=== PATIENT | male | born 1945 | race Caucasian/White ===

== ENCOUNTER 2016-10-23 13:03 | Inpatient (IN) | payer OTHER ==
[2016-10-23 13:07] VITALS: BMI 22.8
[2016-10-23] MEDS ORDERED: morphine CARPU-JECT 4 MG/1 ML DISP.SYRIN IVPUSH ONE (13:37)
[2016-10-23] MEDS ORDERED: SODIUM CHLORIDE 1,000 ML IV STA (13:37)
--- NOTE | 2016-10-23 13:38 | PDOC ---
History of Present Illness - General History Source: Patient Exam Limitations: No Limitations - History of Present Illness Initial Comments: 10/23/16 13:47 The patient is a 71 year old male with past medical history of hypertension, hyperlipidemia, lung CA ( s/p right pneumonectomy 5 years ago, in remission) who presents to the ED with chest pain that began this morning. The patient states that he woke up with a sharp, mid-sternal chest pain rated 9/10 in severity. It is constant and non-radiating in nature. It is not associated with shortness of breath and the patient denies experiencing similar symptoms in the past. The patient states he took two baby aspirin this morning. The patient also adds that he has been feeling very weak the past couple of days and slept in later than usual today. The patient denies any recent illness, fever, chills , nausea, vomiting, diarrhea. He denies any cough or urinary symptoms. The patient denies any recent travel, prolonged sitting, or hormone therapy. <Devi Campos - Last Filed: 10/23/16 16:09> - General History Source: Patient Exam Limitations: No Limitations <Dharmesh Frias - Last Filed: 10/23/16 16:45> - General Chief Complaint: Chest Pain Stated Complaint: CHEST PAIN Time Seen by Provider: 10/23/16 13:32 Past History <Devi Campos - Last Filed: 10/23/16 16:09> - Past Medical History Cancer: Yes (LUNG) Cardiac Disorders: Yes HTN: Yes Hypercholesterolemia: Yes - Psycho/Social/Smoking Cessation Hx Suicidal Ideation: No Smoking History: Never smoked Information on smoking cessation initiated: No <Dharmesh Frias - Last Filed: 10/23/16 16:45> - Past Medical History Allergies/Adverse Reactions: Allergies Allergy/AdvReac Type Severity Reaction Status Date / Time No Known Allergies Allergy Verified 10/23/16 13:07 Home Medications: Ambulatory Orders Aspirin [ASA -] 81 mg PO DAILY 10/23/16 Metoprolol Succinate [Toprol Xl] 50 mg PO DAILY 10/23/16 Omeprazole 40 mg PO DAILY 10/23/16 Polyethylene Glycol 3350 [Glycolax] 17 gm PO DAILY 10/23/16 Rosuvastatin [Crestor -] 10 mg PO DAILY 10/23/16 Review of Systems - Review of Systems Able to Perform ROS?: Yes Comments:: 10/23/16 13:47 GENERAL/CONSTITUTIONAL: Present: weakness No fever or chills. HEAD, EYES, EARS, NOSE AND THROAT: No change in vision. No ear pain or discharge. No sore throat. CARDIOVASCULAR: Present: chest pain No shortness of breath. RESPIRATORY: No cough, wheezing, or hemoptysis. GASTROINTESTINAL: No nausea, vomiting, diarrhea or constipation. GENITOURINARY: No dysuria, frequency, or change in urination. MUSCULOSKELETAL: No joint or muscle swelling or pain. No neck or back pain. SKIN: No rash NEUROLOGIC: No headache, vertigo, loss of consciousness, or change in strength/ sensation. ENDOCRINE: No increased thirst. No abnormal weight change. HEMATOLOGIC/LYMPHATIC: No anemia, easy bleeding, or history of blood clots. ALLERGIC/IMMUNOLOGIC: No hives or skin allergy. All Other Systems: Reviewed and Negative <Devi Campos - Last Filed: 10/23/16 16:09> *Physical Exam - Vital Signs Last Vital Signs Temp Pulse Resp BP Pulse Ox 98 F 88 20 136/89 100 10/23/16 13:04 10/23/16 13:04 10/23/16 13:04 10/23/16 13:04 10/23/16 13:04 - Physical Exam Comments: 10/23/16 13:49 GENERAL: Uncomfortable appearing, Awake, alert, and fully oriented HEAD: No signs of trauma EYES: PERRLA, EOMI, sclera anicteric, conjunctiva clear ENT: Auricles normal inspection, hearing grossly normal, nares patent, oropharynx clear without exudates. Moist mucosa NECK: Normal ROM, supple, no lymphadenopathy, JVD, or masses LUNGS: Breath sounds equal, clear to auscultation bilaterally. No wheezes, and no crackles HEART: irregularly irregular, normal S1 and S2, no murmurs, rubs or gallops ABDOMEN: Soft, nontender, normoactive bowel sounds. No guarding, no rebound. No masses EXTREMITIES: Normal range of motion, no edema. No clubbing or cyanosis. No cords, erythema, or tenderness NEUROLOGICAL: Cranial nerves II through XII grossly intact. Normal speech, normal gait SKIN: Warm, Dry, normal turgor, no rashes or lesions noted. <Devi Campos - Last Filed: 10/23/16 16:09> - Vital Signs Last Vital Signs Temp Pulse Resp BP Pulse Ox 98 F 88 20 136/89 100 10/23/16 13:04 10/23/16 13:04 10/23/16 13:04 10/23/16 13:04 10/23/16 13:04 <Dharmesh Frias - Last Filed: 10/23/16 16:45> Heart Score/ECG Review - History History: Moderately suspicious - Electrocardiogram EKG: Non specific repolarization disturbance - Age Age: >/= 65 - Risk Factors Risk Factors Heart Score: Yes Hx Hypercholesterolemia, Yes Hx Hypertension Based on the list above the patient has:: 1-2 risk factors - Troponin Troponin: >/=3x normal limit - Score Heart Score - Total: 7 #1 ECG reviewed & interpreted by me at: 13:15 10/23/16 15:18 atrial fibrillation 86, left axis deviation, no st/jillian, QTC 440 msec <Dharmesh Frias - Last Filed: 10/23/16 16:45> ED Treatment Course - LABORATORY CBC & Chemistry Diagram: 10/23/16 13:45 10/23/16 13:45 - RADIOLOGY Radiograph Interpretation: 10/23/16 15:53 Chest CTA as reviewed by Dr. Dos Santos reports no evidence of pulmonary embolism. 10/23/16 16:09 Chest x-ray as reviewed by Dr. Dos Santos reports pneumonectomy with mediastinal shift to the right <Devi Campos - Last Filed: 10/23/16 16:09> - LABORATORY CBC & Chemistry Diagram: 10/23/16 13:45 10/23/16 13:45 - RADIOLOGY Radiology Studies Ordered: Category Date Time Status CHEST CTA [CT] Stat CT Scan 10/23/16 13:37 Ordered CHEST X-RAY PORTABLE* [RAD] Stat Radiology 10/23/16 13:37 Ordered <Dharmesh Frias - Last Filed: 10/23/16 16:45> Medical Decision Making - Medical Decision Making 10/23/16 15:54 Microblog sent to Hospitalist. Awaiting call back <Devi Campos - Last Filed: 10/23/16 16:09> - Critical Care Time Total Critical Care Time (minutes): 35 Critical Care Statement: The care of this patient involved high complexity decision making to prevent further life threatening deterioration of the patient 's condition and/or to evalute & treat vital organ system(s) failure or risk of failure. - Medical Decision Making 10/23/16 15:18 A portion of this note was documented by scribe services under my direction. I have reviewed the details of the note, within reason, and agree with the documentation with the following case summary and management plan written by me. Patient treated in the ED. Nursing notes are reviewed and incorporated into the medical decision-making. Vital signs reviewed. Peripheral IV access obtained by the nurse, laboratory studies are drawn and sent, reviewed and interpreted by myself. Vital Signs Temp Pulse Resp BP Pulse Ox 98 F 88 20 136/89 98 10/23/16 13:04 10/23/16 13:04 10/23/16 13:04 10/23/16 13:04 10/23/16 14:05 71 year old male with past medical history of hypertension, hyperlipidemia, lung cancer status post right-sided partial lung resection many years ago in remission presents to the ED with midsternal sharp chest pain with no radiation. Patient denies shortness of breath or nausea or vomiting or diaphoresis and had taken 2 baby aspirins states that he's been feeling persistent chest pain. First-time episode. Denies recent travels, DVTs, PEs. Patient's EKG demonstrates likely new onset of atrial fibrillation. However, no ST elevations or depressions are noted. Troponin is elevated 1.27 concerning for an STEMI. However, given history of lung cancer and sharp chest pain, and persistent chest pain despite morphine, we'll obtain a CT angiogram to rule out pulmonary embolus. Case was discussed with Dr. Mario who agrees to be consulted and requested IV heparin for the patient. Will ultimately admit the patient once the CT scan results are back. 10/23/16 16:39 CBC, BMP 10/23/16 13:45 10/23/16 13:45 CMP Sodium 140 mmol/L (136-145) 10/23/16 13:45 Potassium 3.6 mmol/L (3.5-5.1) 10/23/16 13:45 Chloride 102 mmol/L (98-107) 10/23/16 13:45 Carbon Dioxide 30 mmol/L (21-32) 10/23/16 13:45 Anion Gap 8 (8-16) 10/23/16 13:45 BUN 21 mg/dL (7-18) H 10/23/16 13:45 Creatinine 1.4 mg/dL (0.7-1.3) H 10/23/16 13:45 Creat Clearance w eGFR 49.96 (>60) 10/23/16 13:45 Random Glucose 122 mg/dL (74-106) H 10/23/16 13:45 Calcium 9.5 mg/dL (8.5-10.1) 10/23/16 13:45 Total Bilirubin 0.6 mg/dL (0.2-1.0) 10/23/16 13:45 AST 28 U/L (15-37) 10/23/16 13:45 ALT 24 U/L (12-78) 10/23/16 13:45 Alkaline Phosphatase 91 U/L (45-117) 10/23/16 13:45 Creatine Kinase 354 IU/L (39-308) H 10/23/16 13:45 CK-MB (CK-2) 13.326 ng/ml (0.5-3.6) H 10/23/16 13:45 CK-MB (CK-2) Rel Index Cancelled 10/23/16 13:45 Troponin I 1.27 ng/ml (0.00-0.05) H* 10/23/16 13:45 Total Protein 7.7 g/dl (6.4-8.2) 10/23/16 13:45 Albumin 4.0 g/dl (3.4-5.0) 10/23/16 13:45 TSH 0.88 uIU/ml (0.358-3.74) 10/23/16 13:45 Urine Test Results Urine Color Ltyellow 10/23/16 13:45 Urine Appearance Clear 10/23/16 13:45 Urine pH 5.0 (5.0-8.0) 10/23/16 13:45 Urine Protein Negative (NEGATIVE) 10/23/16 13:45 Urine Glucose (UA) Negative (NEGATIVE) 10/23/16 13:45 Urine Ketones Negative (NEGATIVE) 10/23/16 13:45 Urine Blood 2+ (NEGATIVE) H 10/23/16 13:45 Urine Nitrite Negative (NEGATIVE) 10/23/16 13:45 Urine Bilirubin Negative (NEGATIVE) 10/23/16 13:45 Ur Leukocyte Esterase Negative (NEGATIVE) 10/23/16 13:45 Urine RBC 5 /hpf (0-3) 10/23/16 13:45 Urine WBC 1 /hpf (3-5) 10/23/16 13:45 Ur Epithelial Cells Rare /hpf (FEW) 10/23/16 13:45 CAT scan the chest shows no pulmonary embolism. Patient's troponin is elevated 1.27 suggestive of an STEMI. IV heparin was ordered and given. Patient has been given aspirin. Case was discussed with patient's nephew, Dr. Hurley, who is an post secondary professional with [facility]. Agrees with plan for aspirin, IV heparin. Requests to be kept updated on plans. Dr. Mario aware and had spoken to Dr. Hurley. Case is discussed with Dr. Mario who will follow patient. He is here present in the ED. Case discussed with nicole. Case accepted to telemetry admission. Case discussed in detail with admitting physician including history, physical exam and ancillary studies. Admitting physician has assumed care for the patient, will follow all pending diagnostics and will complete the evaluation and treatment. <Dharmesh Frias - Last Filed: 10/23/16 16:45> *DC/Admit/Observation/Transfer - Attestations Scribe Attestion: 10/23/16 13:51 Documentation prepared by Devi Campos, acting as medical reception for Dharmesh Frias MD. <Devi Campos - Last Filed: 10/23/16 16:09> - Discharge Dispostion Admit: Yes <Dharmesh Frias - Last Filed: 10/23/16 16:45> Diagnosis at time of Disposition: NSTEMI (non-ST elevated myocardial infarction) - Discharge Dispostion Condition at time of disposition: Stable
[2016-10-23] MEDS ORDERED: morphine CARPU-JECT 4 MG/1 ML DISP.SYRIN ONE ×2 (13:46→14:37)
[2016-10-23 13:53] LABS: BASOPHIL 0.3 % (0-2.0); MCH 29.4 pg (25.7-33.7); MEAN CELL VOLUME 86.4 fl (80-96); MEAN PLT VOLUME 8.3 fl (7.5-11.1); NEUTROPHILS 86.3 % (42.8-82.8); PLATELET COUNT 171 K/MM3 (134-434); RDW 14.6 % (11.9-15.9); WHITE BLOOD COUNT 18.7 K/mm3 (4.0-10.0)
[2016-10-23 14:04] LABS: INR 1.12 (0.82-1.09); PROTHROMBIN TIME (PATIENT) 12.4 SEC (9.98-11.88)
[2016-10-23 14:05] LABS: URINE APPEARANCE CLEAR; URINE BILIRUBIN NEGATIVE (NEGATIVE); URINE BLOOD 2+ (NEGATIVE); URINE COLOR LTYELLOW; URINE GLUCOSE (UA) NEGATIVE (NEGATIVE); URINE KETONE NEGATIVE (NEGATIVE); URINE LEUK ESTERASE NEGATIVE (NEGATIVE); URINE NITRITE NEGATIVE (NEGATIVE); URINE PROTEIN NEGATIVE (NEGATIVE); URINE UROBILINOGEN NEGATIVE mg/dL (0.2-1.0)
[2016-10-23 14:19] LABS: ANION GAP 8 (8-16); BILIRUBIN,TOTAL 0.6 mg/dL (0.2-1.0); CALCIUM 9.5 mg/dL (8.5-10.1); CO2 30 mmol/L (21-32); CREATININE 1.4 mg/dL (0.7-1.3); GLUCOSE,RANDOM 122 mg/dL (74-106); SGOT/AST 28 U/L (15-37); SGPT/ALT 24 U/L (12-78); TOT PROT 7.7 g/dl (6.4-8.2)
[2016-10-23 14:23] LABS: GRANULAR CASTS 1 /lpf; URINE RBC 5 /hpf (0-3); URINE WBC 1 /hpf (3-5)
[2016-10-23 14:35] LABS: ALK PHOS 91 U/L (45-117)
[2016-10-23 14:38] LABS: TROPONIN I 1.27 ng/ml (0.00-0.05)
--- NOTE | 2016-10-23 14:44 | CON.CARD ---
Consult Consult Specialty:: cardiology Reason for Consultation:: elevated TNI; chest pain - History of Present Illness History of Present Illness: The patient is a 71 year old white male with past medical history of hypertension, hyperlipidemia, lung CA ( s/p right pneumonectomy 5 years ago, in remission), s/p mitral and tricuspid valve repairs ([facility]; Dr Holder; several years ago), who presents to the ED with chest pain that began this morning. The patient states that he woke up with a sharp, mid-sternal chest pain rated 9/10 in severity. It is constant and non-radiating in nature. It is not associated with shortness of breath and the patient denies experiencing similar symptoms in the past. The patient states he took two baby aspirin this morning. The patient also adds that he has been feeling very weak the past couple of days and slept in later than usual today. The patient denies any recent illness, fever, chills, nausea, vomiting, diarrhea. He denies any cough or urinary symptoms. The patient denies any recent travel, prolonged sitting, or hormone therapy. Pt usually walks and does other exercises nearly every day for at least 30 minutes; denies chest pain or dyspnea during or after workouts. - History Source History Provided By: Patient, Medical Record Limitations to Obtaining History: No Limitations - Past Medical History Cardio/Vascular: Yes: AFIB, HTN Pulmonary: Yes: Cancer (lung CA-->resection) - Past Surgical History Additional Surgical History: lung CA resection - Smoking History Smoking history: Former smoker Home Medications - Allergies Allergies/Adverse Reactions: Allergies Allergy/AdvReac Type Severity Reaction Status Date / Time No Known Allergies Allergy Verified 10/23/16 13:07 - Home Medications Home Medications: Ambulatory Orders Aspirin [ASA -] 81 mg PO DAILY 10/23/16 Metoprolol Tartrate 50 mg PO BID 10/23/16 Omeprazole 40 mg PO DAILY 10/23/16 Polyethylene Glycol 3350 [Glycolax] 17 gm PO DAILY 10/23/16 Rosuvastatin [Crestor -] 10 mg PO DAILY 10/23/16 Family Disease History - Family Disease History Family Disease History: Heart Disease: Father (50s) Review of Systems - Review of Systems Eyes: reports: No Symptoms HENT: reports: No Symptoms Neck: reports: No Symptoms Cardiovascular: reports: Chest Pain Gastrointestinal: reports: Other ("bleeding hemorrhoids" a few years ago) Neurological: reports: Numbness (both feet (after lung CA resection)) - Risk Factors Known Risk Factors: Yes: Age, Family History, Gender, Hypertension, Other (lung CA) Vital Signs: Vital Signs Temperature 98 F 10/23/16 13:04 Pulse Rate 88 10/23/16 13:04 Respiratory Rate 20 10/23/16 13:04 Blood Pressure 136/89 10/23/16 13:04 O2 Sat by Pulse Oximetry (%) 98 10/23/16 14:05 Constitutional: Yes: Anxious Eyes: Yes: WNL HENT: Yes: WNL Neck: Yes: WNL Respiratory: Yes: WNL Gastrointestinal: Yes: WNL Renal/: No: Anuria JVD: No Carotid Bruit: No PMI: Non-Displaced Heart Sounds: Yes: S1, S2, S4 Murmur: Yes: Systolic Murmur, Grade 1 Extremities: Yes: WNL Edema: No Peripheral Pulses WNL: Yes Integumentary: Yes: WNL Neurological: Yes: Numbness Psychiatric: Yes: Other (anxiety) - Other Data Labs, Other Data: CBC, BMP 10/23/16 13:45 10/23/16 13:45 INR, PTT INR 1.12 (0.82-1.09) 10/23/16 13:45 Troponin, BNP 10/23/16 13:45 Troponin I 1.27 H* Troponin, BNP 10/23/16 13:45 Troponin I 1.27 H* Abnormal Lab Results 10/23/16 10/23/16 10/23/16 13:45 13:45 13:45 WBC 18.7 H Neutrophils % 86.3 H Lymphocytes % 5.4 L PTT (Actin FS) BUN 21 H Creatinine 1.4 H Random Glucose 122 H Creatine Kinase 354 H CK-MB (CK-2) 13.326 H Troponin I 1.27 H* Urine Blood 2+ H 10/23/16 10/23/16 20:00 20:00 WBC Neutrophils % Lymphocytes % PTT (Actin FS) 108.9 H D BUN Creatinine Random Glucose Creatine Kinase 901 H D CK-MB (CK-2) Troponin I 31.80 H* D Urine Blood Imaging - Results Chest X-ray: Image Reviewed (right pneumonectomy, with mediastinal shift to the right.) EKG: Image Reviewed (AF) Problem List - Problems (1) NSTEMI (non-ST elevated myocardial infarction) Assessment/Plan: TNI 1.27. Start metoprolol tartrate 12.5 mg bid. Lisinopril 2.5 mg daily. IV heparin (NSTEMI; PAF). Clopidogrel 300 mg now, then 75 mg daily. ASA 325 mg today, then 81 mg daily. Atorvastatin 80 mg now and daily. s/l NTG; Nitropaste (start IV nitroglycerin if chest pain continues). ECHO for LVEF, wall motion, valve status (obtain hx of MV and TV repairs). F/u TNI and EKG serially. For coronary artery evaluation when stable. Code(s): I21.4 - NON-ST ELEVATION (NSTEMI) MYOCARDIAL INFARCTION (2) Hyperlipidemia Assessment/Plan: atorvastatin 80 mg daily. Code(s): E78.5 - HYPERLIPIDEMIA, UNSPECIFIED (3) HTN (hypertension) Assessment/Plan: Metoprolol; lisinopril. Code(s): I10 - ESSENTIAL (PRIMARY) HYPERTENSION (4) Lung cancer Code(s): C34.90 - MALIGNANT NEOPLASM OF UNSP PART OF UNSP BRONCHUS OR LUNG (5) Paroxysmal a-fib Assessment/Plan: metoprolol for HR control. On IV heparin. Telemetry; serial EKGs. TSH pending. ECHO for LVEF, chamber sizes, valve status. Code(s): I48.0 - PAROXYSMAL ATRIAL FIBRILLATION (6) Hyperglycemia Assessment/Plan: fasting glucose; HGBA1c. Code(s): R73.9 - HYPERGLYCEMIA, UNSPECIFIED
[2016-10-23] MEDS ORDERED: HEPARIN NA (PORCINE) 5,000 UNITS/ML 1ML VIAL IVPUSH PRN ×2 (14:53)
[2016-10-23] MEDS ORDERED: HEPARIN NA (PORCINE) 5,000 UNITS/ML 1ML VIAL IVPUSH ONE (14:53)
[2016-10-23] MEDS ORDERED: ASPIRIN 81 MG CHEWABLE TABLETS PO ONE (14:53)
[2016-10-23 14:55] LABS: CK INDEX FOR DOBBS 3.8 % (0.0-5.0)
[2016-10-23] MEDS ORDERED: HEPARIN - 25,000 UNIT in SODIUM CHLORIDE 495 ML IV SCH ×2 (15:00→15:45)
--- NOTE | 2016-10-23 15:22 | EKG ---
Test Reason : Blood Pressure : / mmHG Vent. Rate : 086 BPM Atrial Rate : 089 BPM P-R Int : 000 ms QRS Dur : 098 ms QT Int : 368 ms P-R-T Axes : 000 -38 039 degrees QTc Int : 440 ms BASELINE ARTIFACT RHYTHM APPEARS TO BE SINUS WITH SUPRAVENTRICULAR BEATS LEFT AXIS DEVIATION CONSISTANT WITH LAFB ABNORMAL ECG NO PREVIOUS ECGS AVAILABLE CLINICAL CORRELATION IS RECOMMENDED Confirmed by DAKOTA MURPHY MD ([id number]) on 10/23/2016 3:22:17 PM Referred By: Confirmed By:DAKOTA MURPHY MD
[2016-10-23] MEDS ORDERED: HEPARIN NA (PORCINE) 5,000 UNITS/ML 1ML VIAL ONE (15:28)
[2016-10-23] MEDS ORDERED: ASPIRIN 81 MG CHEWABLE TABLETS ONE (15:28)
[2016-10-23] MEDS ORDERED: HEPARIN INFUSION - 500 ML IVPB ONE (15:29)
[2016-10-23 16:05] LABS: THYROID STIMULATING HORMONE 0.88 uIU/ml (0.358-3.74)
--- NOTE | 2016-10-23 16:57 | PN ---
Teaching Attending Note Name of Resident: Estevan Heaton ATTENDING PHYSICIAN STATEMENT I saw and evaluated the patient. I reviewed the resident's note and discussed the case with the resident. I agree with the resident's findings and plan as documented. SUBJECTIVE: Patient is a 71yo male presented to Ed. for having severe chest pain, and was found to have NSTME. Patient is c/o having mid-sternal pain. OBJECTIVE: Vital Signs Temperature 98 F 10/23/16 13:04 Pulse Rate 62 10/23/16 15:37 Respiratory Rate 16 10/23/16 15:37 Blood Pressure 144/82 10/23/16 15:37 O2 Sat by Pulse Oximetry (%) 100 10/23/16 15:37 CBCD WBC 18.7 K/mm3 (4.0-10.0) H 10/23/16 13:45 RBC 5.08 M/mm3 (4.00-5.60) 10/23/16 13:45 Hgb 14.9 GM/dL (11.7-16.9) 10/23/16 13:45 Hct 43.9 % (35.4-49) 10/23/16 13:45 MCV 86.4 fl (80-96) 10/23/16 13:45 MCHC 34.0 g/dl (32.0-35.9) 10/23/16 13:45 RDW 14.6 % (11.9-15.9) 10/23/16 13:45 Plt Count 171 K/MM3 (134-434) 10/23/16 13:45 MPV 8.3 fl (7.5-11.1) 10/23/16 13:45 CMP Sodium 140 mmol/L (136-145) 10/23/16 13:45 Potassium 3.6 mmol/L (3.5-5.1) 10/23/16 13:45 Chloride 102 mmol/L (98-107) 10/23/16 13:45 Carbon Dioxide 30 mmol/L (21-32) 10/23/16 13:45 Anion Gap 8 (8-16) 10/23/16 13:45 BUN 21 mg/dL (7-18) H 10/23/16 13:45 Creatinine 1.4 mg/dL (0.7-1.3) H 10/23/16 13:45 Creat Clearance w eGFR 49.96 (>60) 10/23/16 13:45 Random Glucose 122 mg/dL (74-106) H 10/23/16 13:45 Calcium 9.5 mg/dL (8.5-10.1) 10/23/16 13:45 Total Bilirubin 0.6 mg/dL (0.2-1.0) 10/23/16 13:45 AST 28 U/L (15-37) 10/23/16 13:45 ALT 24 U/L (12-78) 10/23/16 13:45 Alkaline Phosphatase 91 U/L (45-117) 10/23/16 13:45 Total Protein 7.7 g/dl (6.4-8.2) 10/23/16 13:45 Albumin 4.0 g/dl (3.4-5.0) 10/23/16 13:45 CARDIAC ENZYMES Creatine Kinase 354 IU/L (39-308) H 10/23/16 13:45 Troponin I 1.27 ng/ml (0.00-0.05) H* 10/23/16 13:45 Current Medications Generic Name Dose Route Start Last Admin Trade Name Freq PRN Reason Stop Dose Admin Heparin Sodium (Porcine) 1,000 unit 10/23/16 14:53 Heparin - IVPUSH PRN PRN Heparin Heparin Sodium (Porcine) 5,000 unit 10/23/16 14:53 Heparin - IVPUSH PRN PRN Heparin Heparin Sodium (Porcine) 25, 500 mls @ 20 mls/hr 10/23/16 15:00 10/23/16 16:10 000 unit/ Sodium Chloride IV Not Given TITR SIENNA Protocol 1,000 UNIT/HR Heparin Sodium (Porcine) 25, 500 mls @ 20 mls/hr 10/23/16 15:45 10/23/16 15:38 000 unit/ Sodium Chloride IV 20 mls/hr TITR SIENNA Administration Protocol 1,000 UNIT/HR Home Medications Medication Instructions Recorded Aspirin [ASA -] 81 mg PO DAILY 10/23/16 Metoprolol Succinate [Toprol Xl] 50 mg PO DAILY 10/23/16 Omeprazole 40 mg PO DAILY 10/23/16 Polyethylene Glycol 3350 [Glycolax] 17 gm PO DAILY 10/23/16 Rosuvastatin [Crestor -] 10 mg PO DAILY 10/23/16 PE: per resident's notes Chest X-ray: Image Reviewed (right pneumonectomy, with mediastinal shift to the right.) EKG: Image Reviewed (AF) ASSESSMENT AND PLAN: 71M with history of A. Fib HTN HLD lung Ca presented to ED with chest pain and was found to have NSTEMI #Non-ST elevated myocardial infarction CE q6x3 , Tele, heparin drip, ntp, metoprolol, lisinipril was started, lipitor, NTP 1/2 q6h ,Echo, nitropaste 1/2 ACW qid cardio . # Hyperlipidemia continue current meds atorvastatin 80 mg daily. # HTN (hypertension) Metoprolol; lisinopril. #Lung cancer his left lung s/p RTX therapy # Paroxysmal a-fib metoprolol for HR control. On IV heparin. Telemetry; serial EKGs. TSH pending., FTw,FT3 ECHO for LVEF, chamber sizes, valve status. # Hyperglycemia fasting glucose; HGBA1c. Patient's nephew if he if y
[2016-10-23] MEDS ORDERED: NITROGLYCERIN SUBLINGUAL 1/150 0.4 MG TAB SL ONE (17:01)
--- NOTE | 2016-10-23 17:18 | HP ---
CHIEF COMPLAINT: Chest Pain HISTORY OF PRESENT ILLNESS: Pt is a 71yo M with a history of HTN, HLD, Lung CA (in remission s/p R pneumonectomy + chemo) who presented to the ER with 8/10 constant mid-sternal chest pain which started this morning upon awakening. Pain is sharp and radiates to the midscapular region. The pt took ASA 81mg PO x2 at home without relief, and was given morphine in the ER without relief. No associated SOB, cough, hemoptysis, orthopnea, leg swelling. The patient denies epigastric pain, nausea, vomitting, fevers, chills, diaphoresis. Denies history of anxiety. The patient has never experienced this type of chest pain before. Of note, patient's nephew Dr. Law Savage who is an Interventional Radiologist at [facility] who would like to be notified about updates and major changes in his care. ER course was notable for: (1) EKG - Afib rhythm (2) CXR (neg), CTA chest (neg) (3) Troponins (+) Recent Travel: Denies PAST MEDICAL HISTORY: HTN, HLD, Lung CA (in remission s/p R pneumonectomy + chemo), Hemorrhoids PAST SURGICAL HISTORY: Mitral Valve repair, Tricuspid valve repair, R pneumonectomy Social History: Patient is a retired social studies journalism teacher in the [place] Smoking: Ex-smoker, quit 10 years ago Alcohol: Denies Drugs: Denies Family History: Father had [place] in 50s Sister has Lung CA Allergies No Known Allergies Allergy (Verified 10/23/16 13:07) HOME MEDICATIONS: Home Medications Medication Instructions Recorded Aspirin [ASA -] 81 mg PO DAILY 10/23/16 Metoprolol Succinate [Toprol Xl] 50 mg PO DAILY 10/23/16 Omeprazole 40 mg PO DAILY 10/23/16 Polyethylene Glycol 3350 [Glycolax] 17 gm PO DAILY 10/23/16 Rosuvastatin [Crestor -] 10 mg PO DAILY 10/23/16 REVIEW OF SYSTEMS CONSTITUTIONAL: Absent: fever, chills, diaphoresis, generalized weakness, malaise, loss of appetite, weight change HEENT: Absent: rhinorrhea, nasal congestion, throat pain, throat swelling, difficulty swallowing, mouth swelling, ear pain, eye pain, visual changes CARDIOVASCULAR: Absent: syncope, palpitations, irregular heart rate, lightheadedness, peripheral edema Present: chest pain RESPIRATORY: Absent: cough, shortness of breath, dyspnea with exertion, orthopnea, wheezing, stridor, hemoptysis GASTROINTESTINAL: Absent: abdominal pain, abdominal distension, nausea, vomiting, diarrhea, constipation, melena, hematochezia GENITOURINARY: Absent: dysuria, frequency, urgency, hesitancy, hematuria, flank pain, genital pain MUSCULOSKELETAL: Absent: myalgia, arthralgia, joint swelling, back pain, neck pain SKIN: Absent: rash, itching, pallor HEMATOLOGIC/IMMUNOLOGIC: Absent: easy bleeding, easy bruising, lymphadenopathy, frequent infections ENDOCRINE: Absent: unexplained weight gain, unexplained weight loss, heat intolerance, cold intolerance NEUROLOGIC: Absent: headache, focal weakness or paresthesias, dizziness, unsteady gait, seizure, mental status changes, bladder or bowel incontinence PSYCHIATRIC: Absent: anxiety, depression, suicidal or homicidal ideation, hallucinations. PHYSICAL EXAMINATION Vital Signs - 24 hr 10/23/16 10/23/16 10/23/16 13:04 14:05 15:37 Temperature 98 F Pulse Rate 88 Pulse Rate [ 62 Apical] Respiratory 20 16 Rate Blood Pressure 136/89 Blood Pressure 144/82 [Left Arm] O2 Sat by Pulse 100 98 100 Oximetry (%) GENERAL: Awake, alert, and fully oriented, in minimal distress HEENT: PERRLA, EOMi, Moist mucous membranes, no LAD, no JVD. LUNGS: Breath sounds equal, clear to auscultation bilaterally. No wheezes, and no crackles. No accessory muscle use. HEART: Regular rate and rhythm, with intermittent skipped beats, normal S1 and S2 without murmur, rub or gallop. ABDOMEN: Soft, nontender, not distended, normoactive bowel sounds, no masses. MUSCULOSKELETAL: Normal range of motion at all joints. No bony deformities or tenderness. No CVA tenderness, 2+ pulses, no edema NEUROLOGICAL: No facial droop, Cranial nerves II-XII intact. Sensation is intact in face and body bilaterally. Muscle strength is 5/5 in all extremities. Vibration sense is decreased in bilateral lower extremities PSYCHIATRIC: Cooperative. Good eye contact. Appropriate mood and affect. SKIN: Warm, dry, normal turgor, no rashes or lesions noted, normal capillary refill. Laboratory Results - last 24 hr 10/23/16 10/23/1617 13:00 13:45 13:45 WBC 18.7 H RBC 5.08 Hgb 14.9 Hct 43.9 MCV 86.4 MCH 29.4 MCHC 34.0 RDW 14.6 Plt Count 171 MPV 8.3 Neutrophils % 86.3 H Lymphocytes % 5.4 L Monocytes % 8.0 Eosinophils % 0.0 Basophils % 0.3 INR 1.12 PTT (Actin FS) 28.0 Sodium Potassium Chloride Carbon Dioxide Anion Gap BUN Creatinine Creat Clearance w eGFR Random Glucose Calcium Total Bilirubin AST ALT Alkaline Phosphatase Creatine Kinase CK-MB (CK-2) CK-MB (CK-2) Rel Index Troponin I Total Protein Albumin TSH Cancelled Urine Color Urine Appearance Urine pH Urine Protein Urine Glucose (UA) Urine Ketones Urine Blood Urine Nitrite Urine Bilirubin Urine Urobilinogen Ur Leukocyte Esterase Urine RBC Urine WBC Ur Epithelial Cells Granular Casts 10/23/16 10/23/16 10/23/16 13:45 13:45 13:45 WBC RBC Hgb Hct MCV MCH MCHC RDW Plt Count MPV Neutrophils % Lymphocytes % Monocytes % Eosinophils % Basophils % INR PTT (Actin FS) Sodium 140 Potassium 3.6 Chloride 102 Carbon Dioxide 30 Anion Gap 8 BUN 21 H Creatinine 1.4 H Creat Clearance w eGFR 49.96 Random Glucose 122 H Calcium 9.5 Total Bilirubin 0.6 AST 28 ALT 24 Alkaline Phosphatase 91 Creatine Kinase 354 H CK-MB (CK-2) 13.326 H CK-MB (CK-2) Rel Index Cancelled Troponin I 1.27 H* Total Protein 7.7 Albumin 4.0 TSH 0.88 Urine Color Ltyellow Urine Appearance Clear Urine pH 5.0 Urine Protein Negative Urine Glucose (UA) Negative Urine Ketones Negative Urine Blood 2+ H Urine Nitrite Negative Urine Bilirubin Negative Urine Urobilinogen Negative Ur Leukocyte Esterase Negative Urine RBC 5 Urine WBC 1 Ur Epithelial Cells Rare Granular Casts 1 ASSESSMENT/PLAN: Pt is a 71yo M with a history of HTN, HLD, Lung CA (in remission s/p R pneumonectomy + chemo) who presented to the ER with chest pain at rest. Patient was found to have positive troponins in the ER without EKG changes and was admitted for NSTEMI. # NSTEMI - Pt has resting chest pain, + troponins, no JE on EKG. - Received total loading dose ASA 325 today, NTG sublingual 0.4mg, Atorvastatin 80, Morphine, Heparin Drip - Continue ASA 81mg PO QD, Atorvastatin 80mg QHS, Nitro paste Q6 PRN, Morphine 2mg Q4 PRN - Continue Heparin drip protocol with Q6 PTT - Serial Troponins Q6 to f/u - Repeat EKG to check for changes - Echo pending - Pts nephew Dr. Law Savage is an Interventional Radiologist at [facility], is in contact with Dr. Mcgowan, would like to be notified about major changes. Pager: [phone]) ) # Atrial Fibrillation - Pt is currently rate controlled - Continue Metoprolol Succinate 50mg QD - Continue IV Heparin, monitor for bleeds especially hemorrhoidal - Patient likely needs anticoagulant outpatient # Acute Kidney Injury - Pt has elevated BUN/Cr (21/1.4), no baseline - Likely secondary to decreased perfusion - Trend BUN/Cr # Leukocytosis - WBC 18.7 - No signs of infection - Likely reactive from stress - F/u CBC # Elevated Glucose 122 - No hx of diabetes - Will get HbA1C # Hx of HTN - Will continue Metoprolol Succinate 50mg QD # Hx of HLD - Discontinued patient's low dose statin, started Atorvastatin 80mg QD - Start high dose Atorvastatin 80mg, stat dose now - Check lipid panel in AM # Hx of GERD - Pt on Omeprazole at home, will start Protonix 40mg QD PO # Hx of Hemorrhoids - Continue Polyethylene Glycol - Monitor for bleeds # Hx of Lung CA remission - Not active issue - Will need followup as outpatient # FEN - Fluids: Pt on IVNS 42mL/hr - Electrolytes: No issues - Nutrition: NPO for possible procedure # Prophylaxis - For DVT: Pt on Heparin Drip + SCDs - For GI: Not indicated - For Deconditioning: Physical therapy # Disposition - Admit to Tele Dr. Estevan Heaton PGY-1 Internal Medicine Visit type - Emergency Visit Emergency Visit: Yes ED Registration Date: 10/23/16 Care time: The patient presented to the Emergency Department on the above date and was hospitalized for further evaluation of their emergent condition. - New Patient This patient is new to me today: Yes Date on this admission: 10/23/16 - Critical Care Critical Care patient: No
--- NOTE | 2016-10-23 17:20 | HP ---
Admitting History and Physical - Primary Care Physician PCP: not on staff - Admission Chief Complaint: Chest pain History of Present Illness: Pt is a 71yo M with a history of HTN, HLD, A. fib, Lung CA (in remission s/p R pneumonectomy + chemo/radiation) GERD, who presented to the ER with 8/10 constant mid-sternal chest pain which started this morning upon awakening. Patient states the pain woke him up this moring form his sleep. Pain is sharp and pressure like and radiates to his back in between his shoulder blades. The pt took ASA 81mg PO x2 at home without relief, and was given morphine in the ER without relief. Patient denies nausea vomiting fevers chills or shortness of breath. patient denies any urinary symptoms. He states he has a hemorrhoid that occasionally bleeds and it is painful and he takes miralax and other stool softeners for it. denies cough, hemoptysis, orthopnea, leg swelling. The patient denies diaphoresis. Denies history of anxiety. He has never [id number] his type of chest pain before. patient's nephew Dr. Law Savage who is an Interventional Radiologist at [facility] who wants to be kept informed ad updated in the case. Patient found to have elevated troponin in ED without any significant EKG changes History Source: Patient, Family Member, Medical Record Limitations to Obtaining History: Clinical Condition - Past Medical History Cardiovascular: Yes: HTN, Hyperlipdemia Gastrointestinal: Yes: GERD, Hemorrhoids Heme/Onc: Yes: Cancer (lung s/p right pneumonectomy with chemo and radiation) - Past Surgical History Additional Past Surgical History: OHS-mitral and tricuspid valve replacement right pneumonectomy - Smoking History Smoking history: Never smoked Have you smoked in the past 12 months: No - Alcohol/Substance Use Hx Alcohol Use: No History of Substance Use: reports: None - Social History History of Recent Travel: No Home Medications - Allergies Allergies/Adverse Reactions: Allergies Allergy/AdvReac Type Severity Reaction Status Date / Time No Known Allergies Allergy Verified 10/23/16 13:07 - Home Medications Home Medications: Ambulatory Orders Aspirin [ASA -] 81 mg PO DAILY 10/23/16 Metoprolol Tartrate 50 mg PO BID 10/23/16 Omeprazole 40 mg PO DAILY 10/23/16 Polyethylene Glycol 3350 [Glycolax] 17 gm PO DAILY 10/23/16 Rosuvastatin [Crestor -] 10 mg PO DAILY 10/23/16 Family Disease History - Family Disease History Family Disease History: Heart Disease: Father ([place] in 50's ), CA: Mother (Lung Ca ) Review of Systems - Review of Systems Constitutional: reports: No Symptoms Eyes: reports: No Symptoms HENT: reports: No Symptoms Neck: reports: No Symptoms Cardiovascular: reports: Chest Pain Respiratory: reports: No Symptoms Gastrointestinal: reports: No Symptoms Genitourinary: reports: No Symptoms Musculoskeletal: reports: No Symptoms Integumentary: reports: No Symptoms Neurological: reports: No Symptoms Endocrine: reports: No Symptoms Physical Examination Vital Signs: Vital Signs Temperature 98 F 10/23/16 13:04 Pulse Rate 62 10/23/16 15:37 Respiratory Rate 16 10/23/16 15:37 Blood Pressure 144/82 10/23/16 15:37 O2 Sat by Pulse Oximetry (%) 100 10/23/16 15:37 Constitutional: Yes: Well Nourished, Calm, Mild Distress Eyes: Yes: Conjunctiva Clear, EOM Intact HENT: Yes: Atraumatic Neck: Yes: Supple, Trachea Midline Cardiovascular: Yes: Pulse Irregular, S1, S2 Respiratory: Yes: Hyperresonant (on right with transmitted breath sounds from left lung), Other (Left side clear to auscultation) Gastrointestinal: Yes: Normal Bowel Sounds, Soft ...Rectal Exam: Yes: Deferred Musculoskeletal: Yes: WNL Extremities: Yes: External Rotation Edema: No Neurological: Yes: Alert, Oriented ...Motor Strength: WNL Psychiatric: Yes: Alert, Oriented Imaging - Results Chest X-ray: Report Reviewed, Image Reviewed X-ray: Report Reviewed, Image Reviewed EKG: Report Reviewed, Image Reviewed Assessment/Plan 71M with history of A. Fib HTN HLD lung Ca hemmrhoids presents with cheat pain found to have NSTEMI Problem list: NSTEMI A fib LYNNE leukocytosis Hyperglycemia HTN HLD GERD Lung Ca in remission Plan: Admit to telemetry already given 325mg aspirin continue daily aspirin follow up cardiology consult may possible need other antiplatelets heparin gtt trend PTT per protocol Echo EKG PRN Lipitor Metoprolol Nitro paste PRN-already recieved sublingual nitro in ED Morphine PRN for pain control-helped in ED Will consider transfer for cath if needed light IVF for hydration given LYNNE-no baseline creatinine in system trend WBC coutn-likely reactive from stress trend CBC for Hb as patient has history of hemmroidal bleed-risks of [place] outweight risks of bleeding at this time unclear why patient is not anticoagulated for A fib and history of 2 valve replacements Check HbA1C check lipid panel GI PPx consider PT consult follow up as outpatient for yearly chest CT scan for screening Case discussed with attending and medical team full H&P to follow. Visit type - Emergency Visit Emergency Visit: Yes ED Registration Date: 10/23/16 Care time: The patient presented to the Emergency Department on the above date and was hospitalized for further evaluation of their emergent condition. - New Patient This patient is new to me today: Yes Date on this admission: 10/23/16 - Critical Care Critical Care patient: No
[2016-10-23] MEDS ORDERED: NITROGLYCERIN SUBLINGUAL 1/150 0.4 MG TAB ONE (17:28)
[2016-10-23] MEDS ORDERED: morphine CARPU-JECT 4 MG/1 ML DISP.SYRIN IVPUSH PRN (17:45)
[2016-10-23] MEDS ORDERED: METOPROLOL SUCCINATE 50 MG TAB.SR.24H (FP) PO SCH (18:00)
[2016-10-23] MEDS ORDERED: SODIUM CHLORIDE 1,000 ML IV SCH (18:00)
[2016-10-23] MEDS: NITROGLYCERIN 2% OINTMENT - 1GM PACKET TD PRN (18:50)
[2016-10-23] MEDS ORDERED: METOPROLOL TARTRATE 50 MG TABLET (FP) PO SCH ×2 (22:00)
[2016-10-23] MEDS ORDERED: ATORVASTATIN CA 80 MG TABLET (FP) PO SCH (22:00)
[2016-10-23 22:04] LABS: TROPONIN I 31.8 ng/ml (0.00-0.05)
--- NOTE | 2016-10-23 22:30 | HOSP ---
Subjective - Review of Symptoms Subjective: Pt. Seen at bedside, troponin increased to 31. States chest pain has improved EKG S dwayne at 50, no acute ST-T changes VS: 111/82, RR 18, 02 94RA GEN: NAD, Resting in bed HEENT: NCAT, PERRL CARD: S Dwayne, S1, S2 RESP: CTAB ABDL BS X4 EXT: - C/C/E CBCD WBC 18.7 K/mm3 (4.0-10.0) H 10/23/16 13:45 RBC 5.08 M/mm3 (4.00-5.60) 10/23/16 13:45 Hgb 14.9 GM/dL (11.7-16.9) 10/23/16 13:45 Hct 43.9 % (35.4-49) 10/23/16 13:45 MCV 86.4 fl (80-96) 10/23/16 13:45 MCHC 34.0 g/dl (32.0-35.9) 10/23/16 13:45 RDW 14.6 % (11.9-15.9) 10/23/16 13:45 Plt Count 171 K/MM3 (134-434) 10/23/16 13:45 MPV 8.3 fl (7.5-11.1) 10/23/16 13:45 CMP Sodium 140 mmol/L (136-145) 10/23/16 13:45 Potassium 3.6 mmol/L (3.5-5.1) 10/23/16 13:45 Chloride 102 mmol/L (98-107) 10/23/16 13:45 Carbon Dioxide 30 mmol/L (21-32) 10/23/16 13:45 Anion Gap 8 (8-16) 10/23/16 13:45 BUN 21 mg/dL (7-18) H 10/23/16 13:45 Creatinine 1.4 mg/dL (0.7-1.3) H 10/23/16 13:45 Creat Clearance w eGFR 49.96 (>60) 10/23/16 13:45 Random Glucose 122 mg/dL (74-106) H 10/23/16 13:45 Calcium 9.5 mg/dL (8.5-10.1) 10/23/16 13:45 Total Bilirubin 0.6 mg/dL (0.2-1.0) 10/23/16 13:45 AST 28 U/L (15-37) 10/23/16 13:45 ALT 24 U/L (12-78) 10/23/16 13:45 Alkaline Phosphatase 91 U/L (45-117) 10/23/16 13:45 Total Protein 7.7 g/dl (6.4-8.2) 10/23/16 13:45 Albumin 4.0 g/dl (3.4-5.0) 10/23/16 13:45 CARDIAC ENZYMES Creatine Kinase 901 IU/L (39-308) H D 10/23/16 20:00 Troponin I 31.80 ng/ml (0.00-0.05) H* D 10/23/16 20:00 A/P.) NSTEMI - ASA (already recieved), Hep. gtt, plavix load/Plavix) - BB held due to S dwayne - Morphine prn - Nitropatch already on pt. - 02 2L NC - Echo ordered - Trend Trop to peak - [employer]fer notified - Will Notify Family member SBRADY - Asymptomatic - Monitor for now - Pacer pads at bedside Addendum: Pt with CP /10, unchanged in nature Repeat Trop Pending EKG: S Dwayne 56, no acute St-T changes - Nitro paste prn, if continued CP will do nitro gtt Will Monitor close with low threshold for ICU Physical Examination Vital Signs: Vital Signs Temperature 97.8 F 10/23/16 18:30 Pulse Rate 58 L 10/23/16 18:30 Respiratory Rate 18 10/23/16 18:30 Blood Pressure 121/68 10/23/16 18:30 O2 Sat by Pulse Oximetry (%) 99 10/23/16 17:45
[2016-10-23] MEDS ORDERED: CLOPIDOGREL BISULFATE 300 MG TABLET PO ONE (22:48)
[2016-10-23] MEDS ORDERED: LISINOPRIL 5 MG TABLET (FP) PO SCH (23:45)
[2016-10-24 00:03] LABS: CHOLESTEROL 140 mg/dL (50-200)
[2016-10-24 02:12] LABS: LDL CHOLESTEROL (ONLY SJRH) 70 mg/dL (5-100)
[2016-10-24] MEDS: NITROGLYCERIN 2% OINTMENT - 1GM PACKET TD PRN (03:12)
[2016-10-24 03:24] LABS: TROPONIN I 26.04 ng/ml (0.00-0.05)
[2016-10-24 05:54] LABS: MCH 29.2 pg (25.7-33.7); MCHC 33.8 g/dl (32.0-35.9); MEAN CELL VOLUME 86.5 fl (80-96); MEAN PLT VOLUME 8.6 fl (7.5-11.1); PLATELET COUNT 160 K/MM3 (134-434); RDW 14.4 % (11.9-15.9); WHITE BLOOD COUNT 12.5 K/mm3 (4.0-10.0)
[2016-10-24 07:04] LABS: ALBUMIN 3.4 g/dl (3.4-5.0); ANION GAP 8 (8-16); CALCIUM 8.8 mg/dL (8.5-10.1); CO2 27 mmol/L (21-32); CREATININE 1.3 mg/dL (0.7-1.3); GLUCOSE,RANDOM 112 mg/dL (74-106); SGOT/AST 94 U/L (15-37); SGPT/ALT 29 U/L (12-78)
[2016-10-24 07:06] LABS: ALK PHOS 78 U/L (45-117); BILIRUBIN,TOTAL 0.9 mg/dL (0.2-1.0); TOT PROT 6.5 g/dl (6.4-8.2)
--- NOTE | 2016-10-24 09:41 | EKG ---
Test Reason : Blood Pressure : / mmHG Vent. Rate : 052 BPM Atrial Rate : 052 BPM P-R Int : 168 ms QRS Dur : 084 ms QT Int : 442 ms P-R-T Axes : 028 -19 031 degrees QTc Int : 411 ms SINUS BRADYCARDIA OTHERWISE NORMAL ECG WHEN COMPARED WITH ECG OF 23-OCT-2016 13:12, SINUS RHYTHM HAS REPLACED ATRIAL FIBRILLATION VENT. RATE HAS DECREASED BY 34 BPM Confirmed by LEFTY ZAVALA, JOANNA ([id number]) on 10/24/2016 9:40:45 AM Referred By: Confirmed By:JOANNA OLEA MD
--- NOTE | 2016-10-24 09:57 | PN ---
Progress Note, Physician History of Present Illness: The patient is a 71 year old white male with past medical history of hypertension, hyperlipidemia, lung CA ( s/p right pneumonectomy 5 years ago, in remission), s/p mitral and tricuspid valve repairs ([facility]; Dr Holder; several years ago), who presents to the ED with chest pain that began this morning. The patient states that he woke up with a sharp, mid-sternal chest pain rated 9/10 in severity. It is constant and non-radiating in nature. It is not associated with shortness of breath and the patient denies experiencing similar symptoms in the past. The patient states he took two baby aspirin this morning. The patient also adds that he has been feeling very weak the past couple of days and slept in later than usual today. The patient denies any recent illness, fever, chills, nausea, vomiting, diarrhea. He denies any cough or urinary symptoms. The patient denies any recent travel, prolonged sitting, or hormone therapy. Pt usually walks and does other exercises nearly every day for at least 30 minutes; denies chest pain or dyspnea during or after workouts. - Current Medication List Current Medications: Active Medications Aspirin (Ecotrin -) 81 mg PO DAILY SIENNA Atorvastatin Calcium (Lipitor -) 80 mg PO HS [facility] Last Admin: 10/23/16 21:35 Dose: 80 mg Heparin Sodium (Porcine) (Heparin -) 1,000 unit IVPUSH PRN PRN PRN Reason: Heparin Heparin Sodium (Porcine) (Heparin -) 5,000 unit IVPUSH PRN PRN PRN Reason: Heparin Heparin Sodium (Porcine) 25, (000 unit/ Sodium Chloride) 500 mls @ 20 mls/hr IV TITR SIENNA; 1,000 UNIT/HR PRN Reason: Protocol Last Titration: 10/24/16 06:21 Dose: 850 unit/hr Sodium Chloride (Normal Saline -) 1,000 mls @ 42 mls/hr IV ASDIR [facility] Stop: 10/25/16 17:49 Last Admin: 10/23/16 20:00 Dose: 42 mls/hr Lisinopril (Prinivil) 2.5 mg PO DAILY [facility] Last Admin: 10/24/16 00:52 Dose: 2.5 mg Metoprolol Tartrate (Lopressor -) 50 mg PO BID [facility] Last Admin: 10/23/16 21:09 Dose: Not Given Morphine Sulfate (Morphine Injection -) 2 mg IVPUSH Q4H PRN PRN Reason: FOR CHEST PAIN Nitroglycerin (Nitro-Bid 2% Paste -) 0.5 inch TD Q6HPO PRN PRN Reason: FOR CHEST PAIN Last Admin: 10/24/16 03:12 Dose: 0.5 inch Pantoprazole Sodium (Protonix -) 40 mg PO DAILY SIENNA Polyethylene Glycol (Miralax (For Daily Use) -) 17 gm PO DAILY SIENNA - Objective Vital Signs: Vital Signs Temperature 97.8 F 10/24/16 05:58 Pulse Rate 47 L 10/24/16 05:58 Respiratory Rate 20 10/24/16 05:58 Blood Pressure 102/55 10/24/16 05:58 O2 Sat by Pulse Oximetry (%) 95 10/23/16 20:00 Eyes: Yes: WNL, Conjunctiva Clear, EOM Intact HENT: Yes: WNL, Atraumatic, Normocephalic Neck: Yes: WNL, Supple, Trachea Midline Cardiovascular: Yes: WNL, Regular Rate and Rhythm Respiratory: Yes: WNL, Regular, CTA Bilaterally Gastrointestinal: Yes: WNL, Normal Bowel Sounds Genitourinary: Yes: WNL Musculoskeletal: Yes: WNL Extremities: Yes: WNL Edema: No Integumentary: Yes: WNL Neurological: Yes: WNL, Alert, Oriented ...Motor Strength: WNL Psychiatric: Yes: WNL Labs: CBC, BMP 10/24/16 05:40 10/24/16 05:40 INR, PTT INR 1.12 (0.82-1.09) 10/23/16 13:45 Assessment/Plan - Problems (1) NSTEMI (non-ST elevated myocardial infarction) Assessment/Plan: TNI 16 metoprolol tartrate 12.5 mg bid. Lisinopril 2.5 mg daily. IV heparin (NSTEMI; PAF). Clopidogrel 300 mg now, then 75 mg daily. ASA 325 mg today, then 81 mg daily. Atorvastatin 80 mg now and daily. s/l NTG; Nitropaste (start IV nitroglycerin if chest pain continues). ECHO for LVEF, wall motion, valve status (obtain hx of MV and TV repairs). F/u TNI and EKG serially. urgent cardiac cath today - patient is reluctant to be transfered for c. cath understands risks of . Code(s): I21.4 - NON-ST ELEVATION (NSTEMI) MYOCARDIAL INFARCTION (2) Hyperlipidemia Assessment/Plan: atorvastatin 80 mg daily. Code(s): E78.5 - HYPERLIPIDEMIA, UNSPECIFIED (3) HTN (hypertension) Assessment/Plan: Metoprolol; lisinopril. Code(s): I10 - ESSENTIAL (PRIMARY) HYPERTENSION (4) Lung cancer Code(s): C34.90 - MALIGNANT NEOPLASM OF UNSP PART OF UNSP BRONCHUS OR LUNG (5) Paroxysmal a-fib Assessment/Plan: metoprolol for HR control. On IV heparin. Telemetry; serial EKGs. TSH pending. ECHO for LVEF, chamber sizes, valve status. Code(s): I48.0 - PAROXYSMAL ATRIAL FIBRILLATION (6) Hyperglycemia Assessment/Plan: fasting glucose; HGBA1c. Code(s): R73.9 - HYPERGLYCEMIA, UNSPECIFIED
[2016-10-24] MEDS ORDERED: ASPIRIN COATED 81 MG TABLET.EC PO SCH (10:00)
[2016-10-24] MEDS ORDERED: ASPIRIN 81 MG CHEWABLE TABLETS PO SCH (10:00)
[2016-10-24] MEDS ORDERED: PANTOPRAZOLE 40 MG TABLET (FP) PO SCH (10:00)
[2016-10-24] MEDS ORDERED: POLYETHYLENE GLYCOL 3350 119 GM BTL PO SCH (10:00)
[2016-10-24 10:19] LABS: TROPONIN I 16.06 ng/ml (0.00-0.05)
[2016-10-24 10:52] VITALS: TEMP 98
[2016-10-24 11:09] LABS: CK INDEX FOR DOBBS 6.9 % (0.0-5.0)
[2016-10-24] MEDS ORDERED: CLOPIDOGREL BISULFATE 75 MG TABLET (FP) PO SCH (11:15)
--- NOTE | 2016-10-24 12:35 | EKG ---
Test Reason : Blood Pressure : / mmHG Vent. Rate : 052 BPM Atrial Rate : 052 BPM P-R Int : 174 ms QRS Dur : 086 ms QT Int : 460 ms P-R-T Axes : 049 -23 073 degrees QTc Int : 427 ms SINUS BRADYCARDIA OTHERWISE NORMAL ECG WHEN COMPARED WITH ECG OF 24-OCT-2016 03:13, NO SIGNIFICANT CHANGE WAS FOUND Confirmed by JOANNA OLEA MD ([id number]) on 10/24/2016 12:34:43 PM Referred By: Fawn CAMACHO Confirmed By:JOANNA OLEA MD
[2016-10-24 14:30] VITALS: BP 104/55; PULSE 61
[2016-10-24] MEDS ORDERED: HEPARIN INFUSION - 500 ML IVPB ONE (15:16)
--- NOTE | 2016-10-24 15:22 | PN ---
Teaching Attending Note Name of Resident: Estevan Heaton ATTENDING PHYSICIAN STATEMENT I saw and evaluated the patient. I reviewed the resident's note and discussed the case with the resident. I agree with the resident's findings and plan as documented. SUBJECTIVE: denies CP at time of inteview 12 pm denies SOB or fever ro chills. OBJECTIVE: NAD CV : RRR, no MRG. no JVD Lungs : CTAB ext : no edema , or erythema ASSESSMENT AND PLAN: 71 y/o gentleman , with h/o HTN, HLP , A fib , and lung cancer s/p resection , who presented with CP . He was found to have NSTEMI 1- NSTEMI: EKG reviewed, L axis deviation with flat T waves in III. Trop peaked at 31 . - cont BB , ASA , Plavix , ACEI , and heparin gtt , Nitro past - case was d/w card by team, to transfer to [facility] for cath. - d/w pt , he agrees to transfer 4- LYNNE: could be prerenal . improved on IVF. has no signs of fluid overload -dc IVF 3- P Af ib , in sinus rhythm now. not on AC at home, unclear why. CHADSvasc 3 , ideally should be on fdc AC. 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
--- NOTE | 2016-10-24 20:34 | DS ---
Physical Exam: SUBJECTIVE: Patient seen and examined this AM. No CP after nitro paste, No SOB, no fevers, no chills. OBJECTIVE: Vital Signs Period Temp Pulse Resp BP Sys/Brandon Pulse Ox Last 24 Hr 97.8 F-98.7 F 47-61 18-20 93-147/55-86 95-100 PHYSICAL EXAM GENERAL: Awake, alert, and fully oriented, in minimal distress HEENT: PERRLA, EOMi, Moist mucous membranes, no LAD, no JVD. LUNGS: Breath sounds equal, clear to auscultation bilaterally. No wheezes, and no crackles. No accessory muscle use. HEART: Regular rate and rhythm, with intermittent skipped beats, normal S1 and S2 without murmur, rub or gallop. ABDOMEN: Soft, nontender, not distended, normoactive bowel sounds, no masses. MUSCULOSKELETAL: Normal range of motion at all joints. No bony deformities or tenderness. No CVA tenderness, 2+ pulses, no edema NEUROLOGICAL: No facial droop, Cranial nerves II-XII intact. Sensation is intact in face and body bilaterally. Muscle strength is 5/5 in all extremities. Vibration sense is decreased in bilateral lower extremities LABS Laboratory Results - last 24 hr 10/23/16 10/23/16 10/23/16 20:00 20:00 20:00 WBC RBC Hgb Hct MCV MCH MCHC RDW Plt Count MPV PTT (Actin FS) Sodium Potassium Chloride Carbon Dioxide Anion Gap BUN Creatinine Creat Clearance w eGFR Random Glucose Hemoglobin A1c % 5.4 Calcium Total Bilirubin AST ALT Alkaline Phosphatase Creatine Kinase 901 H D Creatine Kinase Index 7.1 H* CK-MB (CK-2) 63.658 H CK-MB (CK-2) Rel Index Troponin I 31.80 H* D B-Natriuretic Peptide Total Protein Albumin Triglycerides 49 Cholesterol 140 Total LDL Cholesterol 70 HDL Cholesterol 56 10/23/16 10/23/16 10/23/16 20:00 20:00 20:00 WBC RBC Hgb Hct MCV MCH MCHC RDW Plt Count MPV PTT (Actin FS) 108.9 H D Sodium Potassium Chloride Carbon Dioxide Anion Gap BUN Creatinine Creat Clearance w eGFR Random Glucose Hemoglobin A1c % Calcium Total Bilirubin AST ALT Alkaline Phosphatase Creatine Kinase Creatine Kinase Index CK-MB (CK-2) CK-MB (CK-2) Rel Index Cancelled Troponin I B-Natriuretic Peptide 1138.08 H Total Protein Albumin Triglycerides Cholesterol Total LDL Cholesterol HDL Cholesterol 10/24/16 10/24/16 10/24/16 02:00 02:00 05:40 WBC 12.5 H D RBC 4.58 Hgb 13.4 D Hct 39.6 MCV 86.5 MCH 29.2 MCHC 33.8 RDW 14.4 Plt Count 160 MPV 8.6 PTT (Actin FS) Sodium Potassium Chloride Carbon Dioxide Anion Gap BUN Creatinine Creat Clearance w eGFR Random Glucose Hemoglobin A1c % Calcium Total Bilirubin AST ALT Alkaline Phosphatase Creatine Kinase 813 H Creatine Kinase Index 6.8 H* CK-MB (CK-2) 55.359 H CK-MB (CK-2) Rel Index Cancelled Troponin I 26.04 H* B-Natriuretic Peptide Total Protein Albumin Triglycerides Cholesterol Total LDL Cholesterol HDL Cholesterol 10/24/16 10/24/16 10/24/16 05:40 05:40 08:00 WBC RBC Hgb Hct MCV MCH MCHC RDW Plt Count MPV PTT (Actin FS) 68.4 H D Sodium 138 Potassium 3.9 Chloride 103 Carbon Dioxide 27 Anion Gap 8 BUN 19 H Creatinine 1.3 Creat Clearance w eGFR 54.42 Random Glucose 112 H Hemoglobin A1c % Calcium 8.8 Total Bilirubin 0.9 D AST 94 H D ALT 29 D Alkaline Phosphatase 78 Creatine Kinase 603 H D Creatine Kinase Index CK-MB (CK-2) CK-MB (CK-2) Rel Index Troponin I 16.06 H* D B-Natriuretic Peptide Total Protein 6.5 Albumin 3.4 Triglycerides Cholesterol Total LDL Cholesterol HDL Cholesterol 10/24/16 08:00 WBC RBC Hgb Hct MCV MCH MCHC RDW Plt Count MPV PTT (Actin FS) Sodium Potassium Chloride Carbon Dioxide Anion Gap BUN Creatinine Creat Clearance w eGFR Random Glucose Hemoglobin A1c % Calcium Total Bilirubin AST ALT Alkaline Phosphatase Creatine Kinase Creatine Kinase Index CK-MB (CK-2) CK-MB (CK-2) Rel Index Cancelled Troponin I B-Natriuretic Peptide Total Protein Albumin Triglycerides Cholesterol Total LDL Cholesterol HDL Cholesterol HOSPITAL COURSE: Date of Admission:10/23/16 Date of Discharge: 10/24/16 Delmar Menard is a 71yo M with a history of HTN, HLD, Lung CA (in remission s/ p R pneumonectomy + chemo) who presented to the ER with chest pain at rest. He was found to have positive troponins in the ER without EKG changes and was admitted for NSTEMI. # NSTEMI - The patient had resting chest pain, + troponins, no JE on EKG. He received total loading dose ASA 325 today, NTG sublingual 0.4mg, Atorvastatin 80, Morphine, and was started on a Heparin Drip. We then continued the patient on ASA 81mg PO QD, Atorvastatin 80mg QHS, Nitro paste Q6 PRN, Morphine 2mg Q4 PRN and the Heparin drip protocol with Q6 PTT. His chest pain was relieved with the nitroglycerin paste, and the patient slept comfortable. Serial troponins revealed a rise from 1.27 --> 31.8. The night team examined the patient, who was comfortable, without chest pain. Following serial troponins noted a downward trend 26.04 --> 16.06. Repeat EKG showed no new changes. Echo showed LV size, thickness, and function are normal. The patient was transferred to [facility] the next day to have a cardiac catheterizaton procedure. Cardiology has been in contact with his nephew Dr. Law Savage who is an Interventional Radiologist at that hospital, who was notified of the transfer. # Atrial Fibrillation - The patient's initial EKG was notable for Afib. The patient never went into RVR in the hospitalization, and had adequate rate control. The patient was on IV heparin for the NSTEMI as well, and will likely need anticoagulants as an outpatient as he meeds CHADSVASc criteria. # Bradycardia - The patient's heart rate on admission was 88, but had been between 46-52 that night. The patient's metoprolol was changed from 50mg QD to 12.5mg BID. Lisinopril 2.5mg QD was added. The patient's HR at discharge was 61. # Acute Kidney Injury - The patient presented with elevated Cr 1.4 on admission, no clear baseline. This is likely secondary due decreased perfusion from the CO. Cr came down to 1.3 on discharge, needs to monitor outpatient. # Leukocytosis - WBC 18.7 - The patient presented with an elevated WBC count of 18.7 which came down to 12.7 at discharge. The patient never displayed signs of infection, and remained afebrile. This was likely a reactive leukocytosis from the myocardial stress. # Other - Hx of HTN - Pt was on metoprolol, lower dose in hospital - Hx of HLD - His statin was increased to Atorvastatin 80mg QD. Lipid panel WNL - Hx of GERD - Pt was started on Protonix 40mg QD in the hospital, will be discharged on home OMeprazole - Hx of Hemorrhoids - continue PEG, no bleeds during this hospitalization - Hx of Lung CA remission - Pt was never SOB, will need followup as outpatient Dr. Estevan Heaton PGY-1 Internal Medicine Minutes to complete discharge: 55 Discharge Summary Reason For Visit: NSTEMI Current Active Problems NSTEMI (non-ST elevated myocardial infarction) (Acute) HTN (hypertension) (Chronic) Hyperlipidemia (Chronic) Lung cancer (Chronic) Paroxysmal a-fib (Chronic) Condition: Good - Instructions Diet, Activity, Other Instructions: You were admitted because you had a heart attack. Your heart was not getting enough blood supply, and leaking enzymes into your blood. We put you on antiplatelet agents and anticoagulating medications. Your enzymes peaked and then they came down. We would like to send you for a cardiac catheterization procedure which looks at all the arteries in your heart. This is to see if we are able to remove any blockages and place a stent. We will be transferring you to [facility] for the procedure. Please continue to take your newly prescribed medications: Atorvastatin 80mg 1 tablet every night Metoprolol Tartrate 12.5mg 1 tablet two times a day Lisinopril 2.5mg tablet every day Aspirin 81mg 1 tablet every day (your home medication) Plavix 75mg 1 tablet every day Nitroglycerin 2% paste whenever you are experiencing chest pain Please followup with your primary care physician Dr. Dill in 1 week Please followup with your Story Writer Dr. Jose De Jesus Pelaez in 1 week If you have any serious symptoms, please return to the Emergency Department Referrals: Brian Dill MD [Primary Care Provider] - 1 Week Jose De Jesus Pelaez MD [Non Staff, Medical] - 1 Week Disposition: TRANSFER ACUTE CARE/OTHER HOSP - Home Medications Comprehensive Discharge Medication List: Ambulatory Orders Aspirin [ASA -] 81 mg PO DAILY 10/23/16 Omeprazole 40 mg PO DAILY 10/23/16 Polyethylene Glycol 3350 [Glycolax] 17 gm PO DAILY 10/23/16 Atorvastatin Ca [Lipitor] 80 mg PO HS #30 tablet 10/24/16 Clopidogrel Bisulfate [Plavix -] 75 mg PO DAILY #30 tablet 10/24/16 Heparin Infusion - 25,000 units IV TITR #1 infus.bag 10/24/16 Lisinopril [Prinivil] 2.5 mg PO DAILY #30 tablet 10/24/16 Metoprolol Tartrate [Lopressor -] 12.5 mg PO BID #30 tablet 10/24/16 Nitroglycerin 2% Paste [Nitro-Bid 2% Paste -] 0.5 inch TD Q6HPO PRN #15 packet 10/24/16 This patient is new to me today: No Emergency Visit: No Critical Care patient: No - Discharge Referral Referred to [facility] Med P.C.: No
[2016-10-24] MEDS ORDERED: METOPROLOL TARTRATE 25 MG TABLET (FP) PO SCH ×2 (22:00)
--- NOTE | 2016-10-29 09:57 | EKG ---
Test Reason : Blood Pressure : / mmHG Vent. Rate : 051 BPM Atrial Rate : 051 BPM P-R Int : 178 ms QRS Dur : 084 ms QT Int : 462 ms P-R-T Axes : 033 -19 044 degrees QTc Int : 425 ms SINUS BRADYCARDIA OTHERWISE NORMAL ECG WHEN COMPARED WITH ECG OF 23-OCT-2016 22:25, NO SIGNIFICANT CHANGE WAS FOUND Confirmed by MIRELLA VAZQUEZ MD ([id number]) on 10/29/2016 9:57:40 AM Referred By: Confirmed By:MIRELLA VAZQUEZ MD
== END 2016-10-24 15:26 | disposition short-term general hospital (02) | DRG 281 ==
LOC: JER 13:03 → JERBED 16:45 → J4W 18:25
PROVIDERS: ADMIT Internal Medicine; ATTEND Internal Medicine
DX: I21.4 Non-ST elevation (NSTEMI) myocardial infarction (principal); N17.9 Acute kidney failure, unspecified; I48.91 Unspecified atrial fibrillation; I10 Essential (primary) hypertension; E78.5 Hyperlipidemia, unspecified
CPT/HCPCS: 36415; 71010-TC; 71275-TC; 80053; 80061; 81003; 81015; 82550; 82553; 83036; 83721; 83880; 84443; 84484; 85025; 85027; 85610; 85730; 93005; 93010; 93306-TC; 99284-25; J1644